=== PATIENT | male | born 1985 | race African-American/Black ===

== ENCOUNTER 2024-12-09 14:46 | Emergency (ER) | payer SELFPAY ==
[2024-12-09 15:38] LABS: Absolute Lymphocytes (CBC) 2.7 K/uL (0.7-4.9); Hematocrit 43.8 % (39.6-49.0); Hemoglobin 14.7 g/dL (13.6-17.9); MCH 27.3 pg (27.0-35.0); MCHC 33.6 g/dL (32.0-36.0); MCV 81.3 fL (80-100); MPV 7.5 fL (7.6-11.3); Nucleated RBC Absolute Count 0.0 (0-0); Nucleated Red Blood Cells % 0.2 % (0-0); RBC Red Blood Cell Count 5.39 M/uL (4.33-5.43); White Blood Count 4.70 thou/uL (4.3-10.9)
[2024-12-09 15:45] LABS: PT Prothrombin Time 11.9 SECONDS (10-13.0); Protime INR 1.05
[2024-12-09] MEDS ORDERED: ASPIRIN 81 MG CHEWABLE TABLET ONE (15:53)
[2024-12-09] MEDS ORDERED: NA CHLORIDE 0.9% 1,000 ML ONE (15:54)
[2024-12-09 16:00] LABS: ALT/SGPT 51 U/L (16-61); AST/SGOT 24 U/L (15-37); Albumin 3.4 g/dL (3.4-5.0); Albumin/Globulin Ratio 0.9 (1.1-1.8); Alkaline Phosphatase 105 U/L (45-117); Anion Gap 7.4 mEq/L (5.0-15.0); BUN Blood Urea Nitrogen 11 mg/dL (7-18); Bilirubin Indirect, Calculated 0.0 mg/dL (0.2-0.8); Globulin 3.6 g/dL (2.3-3.5); Glucose Level 96 mg/dL (74-106); Magnesium 2.1 mg/dL (1.6-2.4); NT PRO-BNP < 5 pg/mL (<125); Potassium 4.4 mEq/L (3.5-5.1); Troponin High Sensitivity 10.6 pg/mL (<58.9)
[2024-12-09] MEDS ORDERED: ACETAMINOPHEN 325 MG TABLET ONE (17:08)
[2024-12-09] MEDS ORDERED: IBUPROFEN 400 MG TAB ONE (17:08)
--- NOTE | 2024-12-09 17:11 | RAD REPORT ---
EXAMINATION: ONE VIEW CHEST XR CLINICAL INDICATION: Male, 39 years old.,CHEST PAIN TECHNIQUE: Frontal chest projection is submitted. Examination is limited by patient positioning and t echnique. COMPARISON: No prior exam. FINDINGS: The lungs are well inflated and clear. No pneumothorax or sizable effusion. The heart is normal in s ize. Mediastinal contours are unremarkable. IMPRESSION: No acute intrathoracic abnormalities.
--- NOTE | 2024-12-09 17:22 | EDPHYS ---
Physician Documentation [facility] Name: Onesimo Zelaya Age: 39 yrs Sex: Male : 1985 Arrival Date: 12/09/2024 Time: 14:46 Bed 14 Private MD: ED Physician Young Lozano HPI: 12/09 17:14 This 39 yrs old Black Male presents to ER via EMS with complaints of Chest Pain. roxy 17:14 The patient or guardian reports chest pain that is located primarily in the substernal roxy area. The pain does not radiate. Associated signs and symptoms: The patient has no apparent associated signs or symptoms. The chest pain is described as aching. Severity of pain: At its worst the pain was mild in the emergency department the pain is unchanged. The patient has experienced similar episodes in the past, a few times. Historical: - Allergies: 15:34 PENICILLINS; kj2 - PMHx: 15:36 Myocardial infarction; kj2 - Immunization history:: Adult Immunizations unknown. - Infectious Disease History:: Denies. - Social history:: Smoking status: unknown. - Family history:: not pertinent. ROS: 17:14 Constitutional: Negative for fever, chills, and weight loss, Eyes: Negative for injury, roxy pain, redness, and discharge, ENT: Negative for injury, pain, and discharge, Neck: Negative for injury, pain, and swelling, Respiratory: Negative for shortness of breath, cough, wheezing, and pleuritic chest pain, Abdomen/GI: Negative for abdominal pain, nausea, vomiting, diarrhea, and constipation, Back: Negative for injury and pain, : Negative for injury, bleeding, discharge, and swelling, MS/Extremity: Negative for injury and deformity, Skin: Negative for injury, rash, and discoloration, Neuro: Negative for headache, weakness, numbness, tingling, and seizure, Psych: Negative for depression, anxiety, suicide ideation, homicidal ideation, and hallucinations, Allergy/Immunology: Negative for hives, rash, and allergies, Endocrine: Negative for neck swelling, polydipsia, polyuria, polyphagia, and marked weight changes, Hematologic/Lymphatic: Negative for swollen nodes, abnormal bleeding, and unusual bruising, 17:14 Cardiovascular: Positive for chest pain, Exam: 17:14 Constitutional: This is a well developed, well nourished patient who is awake, alert, roxy and in no acute distress. Head/Face: Normocephalic, atraumatic. Eyes: Pupils equal round and reactive to light, extra-ocular motions intact. Lids and lashes normal. Conjunctiva and sclera are non-icteric and not injected. Cornea within normal limits. Periorbital areas with no swelling, redness, or edema. ENT: Nares patent. No nasal discharge, no septal abnormalities noted. Tympanic membranes are normal and external auditory canals are clear. Oropharynx with no redness, swelling, or masses, exudates, or evidence of obstruction, uvula midline. Mucous membranes moist. Neck: Trachea midline, no thyromegaly or masses palpated, and no cervical lymphadenopathy. Supple, full range of motion without nuchal rigidity, or vertebral point tenderness. No Meningismus. Chest/axilla: Normal chest wall appearance and motion. Nontender with no deformity. No lesions are appreciated. Cardiovascular: Regular rate and rhythm with a normal S1 and S2. No gallops, murmurs, or rubs. Normal PMI, no JVD. No pulse deficits. Respiratory: Lungs have equal breath sounds bilaterally, clear to auscultation and percussion. No rales, rhonchi or wheezes noted. No increased work of breathing, no retractions or nasal flaring. Abdomen/GI: Soft, non-tender, with normal bowel sounds. No distension or tympany. No guarding or rebound. No evidence of tenderness throughout. Back: No spinal tenderness. No costovertebral tenderness. Full range of motion. Male : Normal genitalia with no discharge or lesions. Skin: Warm, dry with normal turgor. Normal color with no rashes, no lesions, and no evidence of cellulitis. MS/ Extremity: Pulses equal, no cyanosis. Neurovascular intact. Full, normal range of motion., bilateral aka Neuro: Awake and alert, GCS 15, oriented to person, place, time, and situation. Cranial nerves II-XII grossly intact. Motor strength 5/5 in all extremities. Sensory grossly intact. Cerebellar exam normal. Normal gait. Psych: Awake, alert, with orientation to person, place and time. Behavior, mood, and affect are within normal limits. 17:14 ECG was reviewed by the Attending Physician. Vital Signs: 15:32 BP 139 / 86; Pulse 65; Resp 18; Pulse Ox 100% on R/A; kj2 16:30 BP 126 / 97; Pulse 81; Resp 18; Temp 98; Pulse Ox 100% on R/A; kj2 17:19 BP 105 / 64; Pulse 73; Resp 18; Pulse Ox 100% ; kj2 17:45 BP 106 / 60; Pulse 70; Resp 18; Temp 98; Pulse Ox 100% on R/A; kj2 MDM: 14:49 Medical Screening Exam initiated roxy 17:19 Differential diagnosis: abnormal EKG, acute myocardial infarction, acute pericarditis, roxy anxiety, coronary artery disease chest wall pain, Cholelithiasis costochondritis, esophagitis, gastritis, gastroesophageal reflux disease (GERD), herpes zoster, pancreatitis, peptic ulcer disease, pericarditis, pleurisy, pneumonia, pneumothorax, pulmonary embolus, stable angina, thoracic aortic disection, unstable angina. HEART Score: History: Slightly Suspicious (0), ECG: Normal (0), Age: < or = 45 years (0), Risk Factors: > or = 3 Risk factors for atherosclerotic disease (2), [Hypercholesterolemia] [Hypertension] [+ Family HX] Troponin: < or = 1 x Normal Limit (0). GUNJAN Risk Score: 1 - Three or more CAD risk factors, [Family Hx], [HTN], [Elevated Cholesterol], 1- Known CAD. Data reviewed: vital signs, nurses notes, lab test result(s), EKG, radiologic studies, plain films. Consideration of Admission/Observation Escalation of care including admission/observation considered. I considered the following discharge prescriptions or medication management in the emergency department Medications were administered in the Emergency Department. See MAR. Independent interpretation of the following test(s) in the Emergency Department EKG: See my EKG interpretation above. Test considered but Not performed: Ultrasound NO [address]: NO CT CHEST. 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 12/09 14:49 Order name: Basic Metabolic Panel; Complete Time: 16:24 [facility] 12/09 14:49 Order name: CBC with Diff; Complete Time: 16:24 [facility] 12/09 14:49 Order name: LFT's; Complete Time: 16:24 [facility] 12/09 14:49 Order name: Magnesium; Complete Time: 16:24 [facility] 12/09 14:49 Order name: NT PRO-BNP; Complete Time: 16:24 [facility] 12/09 14:49 Order name: PT-INR; Complete Time: 16:24 [facility] 12/09 14:49 Order name: Troponin HS; Complete Time: 16:24 [facility] 12/09 14:49 Order name: XRAY Chest (1 view); Complete Time: 17:13 [facility] 12/09 14:49 Order name: Cardiac monitoring; Complete Time: 15:34 [facility] 12/09 14:49 Order name: EKG - Nurse/Tech; Complete Time: 15:33 [facility] 12/09 14:49 Order name: IV Saline Lock; Complete Time: 15:33 [facility] 12/09 14:49 Order name: Labs collected and sent; Complete Time: 15:33 [facility] 12/09 14:49 Order name: O2 Per Protocol; Complete Time: 15:33 [facility] 12/09 14:49 Order name: O2 Sat Monitoring; Complete Time: 15:33 [facility] EC:14 Rate is 73 beats/min. Rhythm is regular. QRS [place] is Normal. NV interval is normal. QRS roxy interval is normal. QT interval is normal. No Q waves. T waves are Normal. No ST changes noted. Clinical impression: Normal ECG, NSR w/ Non-specific ST/T Changes, and No evidence of ischemia. Interpreted by me. Reviewed by me. Administered Medications: 16:07 Drug: Aspirin PO Chewable Tablet 162 mg PO once Route: PO; kj2 17:05 Follow up: Response: No adverse reaction kj2 16:07 Drug: NS 0.9% IV 1000 ml IV at 1000 ml once; to be given as a bolus over 60 minutes kj2 Route: IV; Rate: 1000 ml; Site: right antecubital; 17:05 Follow up: IV Status: Completed infusion; IV Intake: 1000ml kj2 17:06 CANCELLED (Physician Discretion; per physiciann): [id number] mg PO once kj2 17:19 Drug: Ibuprofen PO 800 mg PO once Route: PO; kj2 17:36 Follow up: Response: No adverse reaction kj2 17:19 Drug: Acetaminophen PO 650 mg PO once Route: PO; kj2 17:36 Follow up: Response: No adverse reaction kj2 Disposition Summary: 12/09/24 17:22 Discharge Ordered Notes: Location: Home roxy Problem: new roxy Symptoms: have improved roxy Condition: Stable roxy Diagnosis - Chest pain, unspecified roxy - Dental caries, unspecified roxy Followup: roxy - With: Private Physician - When: 2 - 3 days - Reason: Recheck today's complaints, Continuance of care, Re-evaluation by your physician Followup: roxy - With: Vikash Barnard MD - When: 1 - 2 days - Reason: Recheck today's complaints, Re-evaluation by your physician Discharge Instructions: - Discharge Summary Sheet roxy - Nonspecific Chest Pain, Adult roxy - Dental Caries, Adult roxy - Dental Pain roxy - Nonspecific Chest Pain, Adult, [id number] roxy - Aspirin and Your Heart roxy Forms: - Medication Reconciliation Form roxy - Antibiotic Education roxy - Prescription Opioid Use roxy - Patient Portal Instructions roxy - Leadership Thank You Letter [facility] Signatures: Dispatcher [employer] Young Retana MD MD cha Jordan, Krystal, RN RN kj2 Corrections: (The following items were deleted from the chart) 14:50 14:50 Chest Single View+[email or web address] ordered. EDNC EDMS 17:06 17:06 Acetaminophen PO 1000 mg PO once ordered. kj2 kj2
--- NOTE | 2024-12-09 17:22 | ER ---
Nurse's Notes [facility] Name: Onesimo Zelaya Age: 39 yrs Sex: Male : 1985 Arrival Date: 12/09/2024 Time: 14:46 Bed 14 Private MD: Diagnosis: Chest pain, unspecified;Dental caries, unspecified Presentation: 12/09 15:32 Chief complaint: Patient states: chest pain. Coronavirus screen: Client denies travel kj2 out of the [place] in the last 14 days. Ebola Screen: No symptoms or risks identified at this time. Initial Sepsis Screen: Does the patient meet any 2 criteria? No. Patient's initial sepsis screen is negative. Does the patient have a suspected source of infection? No. Patient's initial sepsis screen is negative. Risk Assessment: Do you want to hurt yourself or someone else? Patient reports no desire to harm self or others. Care prior to arrival: Medication(s) given: ASA, 325 mg. 15:32 Method Of Arrival: EMS: [facility] 15:32 Acuity: ARETHA 3 kj2 15:35 Onset of symptoms was December 09, 2024. kj2 Triage Assessment: 17:34 General: Appears in no apparent distress. Behavior is calm, cooperative, see triage kj2 assessment. Historical: - Allergies: 15:34 PENICILLINS; kj2 - PMHx: 15:36 Myocardial infarction; kj2 - Immunization history:: Adult Immunizations unknown. - Infectious Disease History:: Denies. - Social history:: Smoking status: unknown. - Family history:: not pertinent. Screenin:34 [facility] ED Fall Risk Assessment (Adult) History of falling in the last 3 months, kj2 including since admission No falls in past 3 months (0 pts) Confusion or Disorientation No (0 pts) Intoxicated or Sedated No (0 pts) Impaired Gait No (0 pts) Mobility Assist Device Used No (0 pt) Altered Elimination No (0 pt) Score/Fall Risk Level 0 - 2 = Low Risk Maintained a safe environment, Hourly rounding (assess needs \T\ fall precautionary measures) done. Abuse screen: Denies threats or abuse. Denies injuries from another. Nutritional screening: No deficits noted. Tuberculosis screening: No symptoms or risk factors identified. Assessment: 15:35 General: see triage assessment. Pain: Complains of pain in chest Pain currently is 9 kj2 out of 10 on a pain scale. Neuro: Level of Consciousness is awake, alert, obeys commands, Oriented to person, place, time, situation. Cardiovascular: Patient's skin is warm and dry. Respiratory: Airway is patent Respiratory effort is even, unlabored. GI: No signs and/or symptoms were reported involving the gastrointestinal system. : No signs and/or symptoms were reported regarding the genitourinary system. 16:30 Reassessment: Patient appears in no apparent distress at this time. Patient and/or kj2 family updated on plan of care and expected duration. Pain level reassessed. Patient is alert, oriented x 3, equal unlabored respirations, skin warm/dry/pink. 17:19 Reassessment: Patient appears in no apparent distress at this time. Patient and/or kj2 family updated on plan of care and expected duration. Pain level reassessed. Patient is alert, oriented x 3, equal unlabored respirations, skin warm/dry/pink. 17:51 Reassessment: Patient appears in no apparent distress at this time. Patient and/or kj2 family updated on plan of care and expected duration. Pain level reassessed. Patient is alert, oriented x 3, equal unlabored respirations, skin warm/dry/pink. Vital Signs: 15:32 BP 139 / 86; Pulse 65; Resp 18; Pulse Ox 100% on R/A; kj2 16:30 BP 126 / 97; Pulse 81; Resp 18; Temp 98; Pulse Ox 100% on R/A; kj2 17:19 BP 105 / 64; Pulse 73; Resp 18; Pulse Ox 100% ; kj2 17:45 BP 106 / 60; Pulse 70; Resp 18; Temp 98; Pulse Ox 100% on R/A; kj2 ED Course: 14:48 Patient arrived in ED. bd 14:48 Young Lozano MD is Attending Physician. roxy 15:06 Arm band placed on Patient placed in an exam room, on a stretcher. ll1 15:30 Nora Eli, DAVIE is Primary Nurse. kj2 15:34 Triage completed. kj2 15:34 Initial lab(s) drawn, by senior laboratory technician, sent to lab. Inserted saline lock: 18 gauge in right ts3 antecubital area, using aseptic technique. Blood collected. Flushed with 10 mL NS. 15:34 EKG done, by control systems technician. ts3 15:37 Patient has correct armband on for positive identification. Call light in reach. Adult kj2 w/ patient. Provided Education on: call light. 15:43 XRAY Chest (1 view) In Process Unspecified. EDMS 17:21 Vikash Barnard MD is Referral Physician. [facility] 17:34 No provider procedures requiring assistance completed. IV discontinued, intact, kj2 bleeding controlled, No redness/swelling at site. Pressure dressing applied. Administered Medications: 16:07 Drug: Aspirin PO Chewable Tablet 162 mg PO once Route: PO; kj2 17:05 Follow up: Response: No adverse reaction kj2 16:07 Drug: NS 0.9% IV 1000 ml IV at 1000 ml once; to be given as a bolus over 60 minutes kj2 Route: IV; Rate: 1000 ml; Site: right antecubital; 17:05 Follow up: IV Status: Completed infusion; IV Intake: 1000ml kj2 17:06 CANCELLED (Physician Discretion; per physiciann): [id number] mg PO once kj2 17:19 Drug: Ibuprofen PO 800 mg PO once Route: PO; kj2 17:36 Follow up: Response: No adverse reaction kj2 17:19 Drug: Acetaminophen PO 650 mg PO once Route: PO; kj2 17:36 Follow up: Response: No adverse reaction kj2 Medication: 17:34 VIS not applicable for this client. kj2 Intake: 17:05 IV: 1000ml; Total: 1000ml. kj2 Outcome: 17:22 Discharge ordered by . [facility] 17:35 Discharged to home with officer kj2 17:35 Condition: stable 17:35 Discharge instructions given to patient, Instructed on discharge instructions, follow up and referral plans. Demonstrated understanding of instructions, follow-up care, 18:06 Patient left the ED. kj2 Signatures: Dispatcher [employer] EDTN Analilia Kincaid Corey, MD MD cha Lewis, Lynsay RN RN ll1 Nora Eli RN RN kj2 Francine Beard ts3
[2024-12-10 01:15] VITALS: BP 139/86; O2SAT 100
== END 2024-12-09 18:06 | disposition home or self-care (01) ==
LOC: ER 14:46
DX: R07.9 Chest pain, unspecified (principal); K02.9 Dental caries, unspecified; I25.2 Old myocardial infarction; Z88.0 Allergy status to penicillin
CPT/HCPCS: 36415; 71045; 80048; 80076; 83735; 83880; 84484; 85025; 85610; 93005; 96360; 99284; J7030